=== PATIENT | female | born 1995 | race Caucasian/White ===

== ENCOUNTER 2017-03-25 00:48 | Emergency (ER) | payer OTHER ==
[~2017-03-25] VITALS: Ht 166.4 cm; Wt 59.1 kg
[2017-03-25 00:55] VITALS: TEMP 36.8; Ht 166.4 cm; Wt 59.1 kg
--- NOTE | 2017-03-25 01:32 | EMERGENCY ROOM VISIT NOTE ---
History Report prepared by Nicko: Shivani Rucker Under the Supervision of: Dr. Mala Roberts M.D. First contact with patient: 01:06 Chief Complaint: HEAD INJURY (MINOR) Stated Complaint: NAUSEA,HEADACHE History of Present Illness The patient is a 21 year old female who presents to the Emergency Room with complaints of a head injury occurring 2 days ago. The patient states that she hit her head on a wall 2 days ago, and has been nauseous for the last 24 hours. She also reports that after she hit her head, she was experiencing spasms in the back of her head. She denies passing out after hitting her head. The patient denies a current headache and vomiting. The patient reports normal speech and vision, but states that it has been hard to read. She also reports that she has been able to ambulate normally. Source of History: patient Onset: 2 days ago Position: head Quality: other (injury ) Associated Symptoms: + nausea, No headache, No vomiting Review of Systems See HPI for pertinent positives & negatives. A total of 10 systems reviewed and were otherwise negative. Past Medical & Surgical Medical Problems: (1) No active medical problems Family History Cancer Diabetes mellitus Heart disease Hypertension Social History Smoking Status: Current Every Day Smoker Housing Status: lives with roommate Occupation Status: [employer] Current/Historical Medications Scheduled Rizatriptan Benzoate (Maxalt), 10 MG PO PRN/UD Allergies Uncoded Allergies: SULFA MEDICATIONS (Allergy, Severe, ANAPHYLAXIS, 03/25/17) Physical Exam Vital Signs Date Time Temp Pulse Resp B/P (MAP) Pulse Ox O2 Delivery O2 Flow Rate FiO2 03/25/17 01:58 93 122/64 99 03/25/17 00:55 36.8 94 20 121/82 97 Room Air Physical Exam Vital signs reviewed. General: Well-appearing female, in no significant distress. HEENT: No scleral icterus, PERRLA, neck supple. Atraumatic. Cardiovascular: Regular rate and rhythm, no extra sounds. Pulmonary: Clear to auscultation bilaterally, normal work of breathing. Abdomen: Soft, nontender, nondistended, positive bowel sounds. Musculoskeletal: Atraumatic, no peripheral edema. Neurologic: Patient awake alert and oriented x 3, full strength in all 4 extremities. Cranial nerves 2 through 12 grossly intact. Skin: Warm, dry, no rash Medical Decision & Procedures Medications Administered Medications (Trade) Dose Ordered Sig/Nataliya Route Start Time Stop Time Status Last Admin Dose Admin Ondansetron HCl (Zofran Odt) 4 mg NOW STAT PO 03/25/17 01:34 03/25/17 01:35 DC 03/25/17 01:40 4 MG Ondansetron HCl (ZOFRAN ODT 4MG Home Pack) 1 homepack UD ONCE PO 03/25/17 01:45 03/25/17 01:46 DC 03/25/17 01:40 1 HOMEPACK ED Course 0126: Past medical records reviewed. The patient was evaluated in room A4B. A complete history and physical examination was performed. 0134: Ordered Zofran Odt 4 mg PO. 0145: Ordered Ondansetron HCl 1 homepack PO. 0148: Upon reevaluation, the patient appeared to have improvement of her symptoms. I discussed findings with her. She verbalized agreement of the treatment plan. She was discharged home. Medical Decision Differential diagnosis:Etiologies such as concussion, contusion, fracture, subdural hematoma, epidural hematoma, intraparenchymal hemorrhage, as well as other traumatic pathologies were entertained. This patient was evaluated and appeared to be in no significant distress. Physical examination is unrevealing. The patient has no focal neurologic deficit. There was no loss of consciousness and the injury appears to be rather benign, it also happened 2 days ago. This time I do not think the patient with benefit from imaging. We did discuss the risks and benefits of the radiation secondary to the CT scan. This time we will forego imaging and the patient was given head injury instructions. She will be monitored by a friend. Patient will follow-up with [facility] if symptoms continue. She will return to the ER for worsening of symptoms or any medical concerns. Head Trauma GCS Score: 15 Medication Reconcilliation Current Medication List: was personally reviewed by me Blood Pressure Screening Patient's blood pressure: Normal blood pressure Impression Primary Impression: Post concussion syndrome Scribe Attestation The scribe's documentation has been prepared under my direction and personally reviewed by me in its entirety. I confirm that the note above accurately reflects all work, treatment, procedures, and medical decision making performed by me. Departure Information Dispostion Home / Self-Care Referrals No Doctor, Assigned (PCP) Forms HOME CARE DOCUMENTATION FORM, IMPORTANT VISIT INFORMATION Patient Instructions ED Head Injury Closed, My [facility] Additional Instructions Diagnosis: Post concussive syndrome Zofran 4 mg ODT every 6 hours as needed for nausea. Drink plenty of clear fluids. Avoid alcohol, excessive caffeine. Avoid further head injury until symptoms resolve. Return to the ER for worsening of symptoms or any medical concerns.
[2017-03-25] MEDS ORDERED: ONDANSETRON 4MG OD TAB PO STA (01:34)
[2017-03-25] MEDS ORDERED: ONDANSETRON HOME PACK 4MG OD TAB PO ONE (01:45)
[2017-03-25] MEDS ORDERED: RIZA10TA18 PO (01:45)
[2017-03-25 01:58] VITALS: BP 122/64; PULSE 93; O2SAT 99
== END 2017-03-25 01:59 | disposition home or self-care (01) ==
LOC: C.EDB 00:50 → C.EDA 01:59
DX: F07.81 Postconcussional syndrome (principal); F17.200 Nicotine dependence, unspecified, uncomplicated; Z83.3 Family history of diabetes mellitus; Z82.49 Family history of ischemic heart disease and other diseases of the circulatory system